=== PATIENT | male | born 1990 | race Two or more races ===

== ENCOUNTER 2019-06-12 07:50 | Emergency (ER) | payer MEDICAID, OTHER ==
[~2019-06-12] VITALS: Ht 177.8 cm; Wt 81.6 kg
[2019-06-12 08:18] VITALS: BP 136/89
== END 2019-06-12 09:11 | disposition home or self-care (01) ==
LOC: EDBD 07:50 → ER 07:56
DX: T69.9XXA Effect of reduced temperature, unspecified, initial encounter (principal); X58.XXXA Exposure to other specified factors, initial encounter; F17.210 Nicotine dependence, cigarettes, uncomplicated